=== PATIENT | male | born 1970 | race Caucasian/White ===

== ENCOUNTER → 2024-11-20 | Outpatient (CLI) | payer OTHER, SELFPAY ==
[2024-11-20 18:16] LABS: Absolute Neutrophil Count 5.6 X10^3/uL (2.0-7.7); Basophil# 0.05 X10^3/uL; Basophil% 0.6 % (0-1); Eosinophil# 0.13 X10^3/uL; Eosinophils% 1.5 % (0-5); Hematocrit 43.7 % (40-54); Hemoglobin 15.2 g/dL (13.0-16.5); Lymphocyte % 23.7 % (19-41); Mean Corp Hgb Conc 34.8 g/dL (32-36); Mean Corpuscular Hgb 31.3 pg (27.0-32.0); Mean Corpuscular Volume 89.9 fL (80-94); Mean Platelet Vol. 9.7 fl (6.2-12.0); Monocyte# 0.62 X10^3/uL; Monocyte% 7.3 % (0-10); NRBC Flagged by Analyzer 0 % (0-5); Neutrophil # 5.62 X10^3/uL (2.7-7.7); Neutrophil % 66.7 % (47-70); Platelet Count 368 K/mm3 (150-450); RBC Distribution Width CV 11.9 % (11.6-14.6); Red Blood Count 4.86 M/mm3 (4.6-6.2); White Blood Count 8.4 K/mm3 (4.4-11.0)
[2024-11-20 18:31] LABS: ALB/GLOB Ratio 1.4 RATIO (0.9-2.4); AST(SGOT) 27 U/L (<=37); Alanine Aminotransfer ALT/SGPT 21 U/L (<=46); Albumin, Serum 3.9 g/dL (3.5-5.0); Alkaline Phosphatase 75 U/L (40-129); Anion Gap 20 (5-15); BUN 12 mg/dL (4-19); BUN/Creat Ratio 12.4 RATIO (10-20); Calcium,Total 8.8 mg/dL (7.6-11.0); Carbon Dioxide 13.2 mmol/L (21.0-32.0); Chloride 104 mmol/L (98-108); Cholesterol 163 mg/dL (<=200); Creatinine, Serum 0.94 mg/dL (0.70-1.20); EST Glomerular Filtration Rate 97 (>60); Globulin 2.7 g/dL (2.2-4.2); Glucose 94 mg/dL (70-99); High Density Lipoprotein 61 mg/dL; Low Density Lipoprotein Calc. 89 mg/dL; PSA,Total - Annual Screen 0.49 ng/mL (0.02-4.00); Potassium 3.8 mmol/L (3.3-5.1); Protein, Total 6.6 g/dL (5.9-8.4); Sodium Level 137 mmol/L (133-145); Total Bilirubin 0.46 mg/dL (0.00-1.30); Triglycerides 68 mg/dL; Very Low Density Lipoprotein 14 mg/dL (5-40); cholesterol:hdl ratio screen 2.69
== END | disposition home or self-care (01) ==
PROVIDERS: PCP Nurse Practitioner Family; Referring Provider Nurse Practitioner Family; Visit Provider Nurse Practitioner Family
DX: Z00.01 Encounter for general adult medical examination with abnormal findings (principal); Z12.5 Encounter for screening for malignant neoplasm of prostate
CPT/HCPCS: 36415; 80053; 80061; 84153; 85025; G0103

== ENCOUNTER 2024-12-09 06:36 | Day surgery (SDC) | payer OTHER, SELFPAY ==
--- OUTSIDE RECORDS SUMMARY | 2024-12-09 06:39 | XMS RPT_ITS | CCD ---
Author Organization [facility] Care Team Providers Care Glazier Artist Name Role Phone TANESHA SNOWDEN Attending Unavailable Benjamin BILL HIKER-C, Ashley Primary Care Provider Benjamin BILL HIKER-C, Ashley Attending Provider [phone] Benjamin BILL HIKER-C, Ashley Referring Provider Jamey POPE, Dr. Silvestre Zavala Attending Provider Benjamin, Ashley Referring Unavailable Benjamin, Ashley Primary Care Unavailable Silvestre Concepcion Attending Unavailable Benjamin, Ashley Attending Unavailable Benjamin, Ashley Primary Care Unavailable Benjamin, Ashley Referring Unavailable Benjamin, Ashley Primary Care Unavailable Silvestre Concepcion Referring Unavailable Silvestre Concepcion Attending Unavailable Silvestre Arce Attending Unavailable Problems Problem Classification Problem Date Documented Da te Episodic/Chronic Gastrointestinal hemorrhage (1 source) Hematochezia; Translations: [Melena] 12-01-2024 Episodic Hemorrhoids (1 source) Hemorrhoids; Translations: [Unspecified hemorrhoids] 12-01-2024 Episodic Results Test Name Value Interpretation Reference Range Facility Surgery Visit Reporton 12-01 Surgery Visit Report [facility] [address] [place] [address] OFFICE VISIT Date of Service: 12/01/24 MR#: [id number] Acct: [id number] Name: GERRY LOW Rep #: [id number] : 1970 Provider: Dr. Silvestre dempsey MD Age/Sex: 54/M Location: [facility] Status: Signed Intake Vital Signs 12/01/24 09:39 Height 5 ft 7 in Weight: 204 lb 4 oz BMI 32.0 BP 144/104 H Blood Pressure Location Rt brachial Position Sitting Respiration 18 Pulse 75 Pulse Source Monitor Temp 97.2 F L Temp Source Temporal Pulse Oximetry (%) 98 Oxygen Delivery Method room air Intake Visit Reasons: COLONOSCOPY, BLOODY STOOL Chief Complaint: colonoscopy, bloody stool Is patient in pain?: No Allergies No Known Allergies Allergy (Unverified 12/01/24 09:40) Medications ???Medication ???Instructions ???Recorded ???Confirmed ???Type NK 12/01/24 12/01/24 History PFSH Medical History Hemorrhoids Blood in stool Surgical History Hx of total knee arthroplasty Social History Smoking Status: Never smoker alcohol intake: never substance use type: does not use HPI HPI HPI: The patient is a 54-year-old male who is being seen today for complaints of blood per rectum. He has never had a colonoscopy. He states that for the past year he has noticed intermittent bright red blood with bowel movements. He states that this blood is usually just noticed on the toilet tissue with wiping however it can sometimes also be within the toilet bowl water as well. He does admit to being on his feet and lifting on a daily basis. He denies issues with constipation. No family history of colon polyps or colon cancers. He presents today to discuss colonoscopy ROS General General: No weight change, appetite, fatigue, colon cancer, breast cancer or weakness HEENT HEENT: No difficulty swallowing, eye injury, eye surgery, swollen glands or hoarseness Endo Endocrine: No thyroid disease, diabetes mellitus, thyroid cancer, Hair loss, heat intolerance or cold intolerance Skin Skin: No rash or changing moles Musc Musculoskeletal: No back problems, arthritis, rheumatoid arthritis, gout or joint pain Cardio Cardiovascular: No murmur, pacemaker, heart disease, atrial fibrillation, high blood pressure, heart attack, heart stent, palpitations, shortness of breath with exertion or chest pain Psych Psychiatric: No depression, anxiety or hearing voices Resp Respiratory: No shortness of breath, No sleep apnea, No cough, No COPD, No asthma, No emphysema and No wheezing Gastro Gastrointestinal: No abdominal pain, No nausea or vomiting, No diarrhea, No constipation, Yes blood in stool, No acid reflux, Yes hemorrhoids, No ulcers, No gallbladder problem and No black,tarry stools Stevie Hematologic: No blood thinners, No blood disorders, No bleeding, No anemia and No blood clots Neuro Neurologic: No numbness, No tingling and No weakness Exam Const General: cooperative, comfortable and no acute distress HENNM Head: normal to inspection, normocephalic and atraumatic Eyes General: appearance normal, both eyes and all related structures Neck Neck: normal visual inspection Resp Effort Inspection: normal respiratory effort GI Inspection: normal to inspection Assessment and Plan Assessment and Plan (1) Hemorrhoids: Status: Acute (2) Blood in stool: Status: Acute Plan: The patient is a 54-year-old male with occasional blood per rectum. I suspect this could be hemorrhoid related however he has never had a colonoscopy and would recommend colonoscopy to rule out polyps and/or malignancy as possibilities as well. He is agreeable to this plan. We discussed the details of the planned colonoscopy including risk benefits and alternatives. He wishes to proceed. In the meantime I did recommend that he also try to increase the fiber in his diet via Benefiber or Metamucil. He is agreeable this plan. we will schedule his colonoscopy in a timely manner. Coding Level of Care Code Off vis,new,level 4 Diagnoses Hemorrhoids K64.9 Blood in stool K92.1 12/01/24 1007 Date _ Silvestre Concepcion MD Cosigner Signature: Date _ (if applicable) CC: BILL HIKER-C Ashley Alexander Normal [facility] Absolute lymphocyte countOrd ered By: Ashley Alexander on 11-20-2024 Lymphocytes Auto (Unsp spec) [#/Vol] 2.00 10*3/uL 0.83-4.51 [facility] Absolute neutrophil countOrd ered By: Ashley Alexander on 11-20-2024 Neutrophils (Bld) [#/Vol] 5.6 10*3/uL 2.0-7.7 [facility] Anion gap in Serum or Plasma Ordered By: Ashleycameron Alexander on 11-20-2024 Anion gap [Moles/Vol] 20 mmol/L High 5-15 [facility] Automated lymphocyte count a s percentage of total leukocytesOrdered By: Ashley Alexander on 11-20-2024 Lymphocytes/100 WBC Auto (Unsp spec) 23.7 % - [facility] BUN/creatinine ratioOrdered By: Ashley Benjamin on 11-20-2024 Urea nitrogen/Creatinine [Mass ratio] 12.4 mg/mg 10- [facility] Basophil percentageOrdered B y: Ashley Alexander on 11-20-2024 Basophils/100 WBC (Bld) 0.6 % 0-1 [facility] Bilirubin, totalOrdered By: Ashley Alexander on 11-20-2024 Bilirubin [Mass/Vol] 0.46 mg/dL 0.00-1.30 [facility] CBC W/Diff, Automatedon 10-31 Absolute Lymph 2.00 X10 3/uL Normal 0.83-4.51 [facility] Comment on above: Performed By: #### L 501.9910, L100.0100, L500.4100, L500.4050 #### [facility] [address] [place], [address] Absolute Neut 5.6 X10 3/uL Normal 2.0-7.7 [facility] Comment on above: Performed By: #### L 501.9910, L100.0100, L500.4100, L500.4050 #### [facility] [address] [place], [address] Basophils/100 WBC (Bld) 0.6 % Normal 0-1 [facility] Comment on above: Performed By: #### L 501.9910, L100.0100, L500.4100, L500.4050 #### [facility] [address] [place], [address] Eosinophils/100 WBC (Bld) 1.5 % Normal 0-5 [facility] Comment on above: Performed By: #### L 501.9910, L100.0100, L500.4100, L500.4050 #### [facility] [address] [place], [address] Erythrocyte distribution width (RBC) [Ratio] 11.9 % Normal 11.6-14.6 [facility] Comment on above: Performed By: #### L 501.9910, L100.0100, L500.4100, L500.4050 #### [facility] [address] [place], [address] Hematocrit (Bld) [Volume fraction] 43.7 % Normal 40-54 [facility] Comment on above: Performed By: #### L 501.9910, L100.0100, L500.4100, L500.4050 #### [facility] [address] [place], [address] Hemoglobin (Bld) [Mass/Vol] 15.2 g/dL Normal 13.0-16.5 [facility] Comment on above: Performed By: #### L 501.9910, L100.0100, L500.4100, L500.4050 #### [facility] [address] [place], [address] IG% 0.200 Normal 0.0-0.9 [facility] Comment on above: Result Comment: IG% - Immature Granulocytes (promyelocytes, myelocytes and metamyelocytes) > 1% indicates that a LEFT SHIFT is Present. Performed By: #### L 501.9910, L100.0100, L500.4100, L500.4050 #### [facility] [address] [place], [address] Lymphocytes/100 WBC (Bld) 23.7 % Normal 19-41 [facility] Comment on above: Performed By: #### L 501.9910, L100.0100, L500.4100, L500.4050 #### [facility] [address] [place], [address] MCH (RBC) [Entitic mass] 31.3 pg Normal 27.0-32.0 [facility] Comment on above: Performed By: #### L 501.9910, L100.0100, L500.4100, L500.4050 #### [facility] [address] [place], [address] MCHC (RBC) [Mass/Vol] 34.8 g/dL Normal 32-36 [facility] Comment on above: Performed By: #### L 501.9910, L100.0100, L500.4100, L500.4050 #### [facility] [address] [place], [address] MCV (RBC) [Entitic vol] 89.9 fL Normal 80-94 [facility] Comment on above: Performed By: #### L 501.9910, L100.0100, L500.4100, L500.4050 #### [facility] [address] [place], [address] Monocytes/100 WBC (Bld) 7.3 % Normal 0-10 [facility] Comment on above: Performed By: #### L 501.9910, L100.0100, L500.4100, L500.4050 #### [facility] [address] [place], [address] Neutrophils/100 WBC (Bld) 66.7 % Normal 47-70 [facility] Comment on above: Performed By: #### L 501.9910, L100.0100, L500.4100, L500.4050 #### [facility] [address] [place], [address] Nucleated RBC (Bld) [#/Vol] 0 10*3/uL Normal 0-5 [facility] Comment on above: Performed By: #### L 501.9910, L100.0100, L500.4100, L500.4050 #### [facility] [address] [place], [address] Platelet mean volume (Bld) [Entitic vol] 9.7 fL Normal 6.2-12.0 [facility] Comment on above: Performed By: #### L 501.9910, L100.0100, L500.4100, L500.4050 #### [facility] [address] [place], [address] Platelets (Bld) [#/Vol] 368 10*3/uL Normal 150-450 [facility] Comment on above: Performed By: #### L 501.9910, L100.0100, L500.4100, L500.4050 #### [facility] [address] [place], [address] RBC (Bld) [#/Vol] 4.86 10*6/uL Normal 4.6-6.2 [facility] Comment on above: Performed By: #### L 501.9910, L100.0100, L500.4100, L500.4050 #### [facility] [address] [place], [address] RDW SD 39.0 fl Normal 35.1-43.9 [facility] Comment on above: Performed By: #### L 501.9910, L100.0100, L500.4100, L500.4050 #### [facility] [address] [place], [address] WBC (Bld) [#/Vol] 8.4 10*3/uL Normal 4.4-11.0 [facility] Comment on above: Performed By: #### L 501.9910, L100.0100, L500.4100, L500.4050 #### [facility] [address] [place], [address] Calculated very low density lipoprotein (VLDL) cholesterol measurementOrdered By: Ashley Alexander on 11-20-2024 Calculated very low density lipoprotein (VLDL) cholesterol measurement 14 mg/dL 5-40 [facility] Carbon dioxide, total [Moles /volume] in Central venous bloodOrdered By: Ashley Alexander on 11-20-2024 CO2 [Moles/Vol] 13.2 mmol/L Low 21.0-32.0 [facility] Chloride assayOrdered By: Ra bibi Alexander on 11-20-2024 Chloride [Moles/Vol] 104 mmol/L 98-108 [facility] Comprehensive Metabolic Prof ilon 11-20-2024 Albumin [Mass/Vol] 3.9 g/dL Normal 3.5-5.0 [facility] Comment on above: Performed By: #### L 501.9910, L100.0100, L500.4100, L500.4050 #### [facility] [address] [place], [address] Albumin/Globulin [Mass ratio] 1.4 {ratio} Normal 0.9-2.4 [facility] Comment on above: Performed By: #### L 501.9910, L100.0100, L500.4100, L500.4050 #### [facility] [address] [place], [address] ALK PHOS 75 U/L Normal 40-129 [facility] Comment on above: Performed By: #### L 501.9910, L100.0100, L500.4100, L500.4050 #### [facility] [address] [place], [address] ALT [Catalytic activity/Vol] 21 U/L Normal <=46 [facility] Comment on above: Performed By: #### L 501.9910, L100.0100, L500.4100, L500.4050 #### [facility] [address] [place], [address] AST [Catalytic activity/Vol] 27 U/L Normal <=37 [facility] Comment on above: Performed By: #### L 501.9910, L100.0100, L500.4100, L500.4050 #### [facility] [address] [place], [address] Bilirubin [Mass/Vol] 0.46 mg/dL Normal 0.00-1.30 [facility] Comment on above: Performed By: #### L 501.9910, L100.0100, L500.4100, L500.4050 #### [facility] [address] [place], [address] BUN/CRE 12.4 RATIO Normal 10-20 [facility] Comment on above: Performed By: #### L 501.9910, L100.0100, L500.4100, L500.4050 #### [facility] [address] [place], [address] Calcium [Mass/Vol] 8.8 mg/dL Normal 7.6-11.0 [facility] Comment on above: Performed By: #### L 501.9910, L100.0100, L500.4100, L500.4050 #### [facility] [address] [place], [address] Chloride [Moles/Vol] 104 mmol/L Normal 98-108 [facility] Comment on above: Performed By: #### L 501.9910, L100.0100, L500.4100, L500.4050 #### [facility] [address] [place], [address] CO2 [Moles/Vol] 13.2 mmol/L Low 21.0-32.0 [facility] Comment on above: Performed By: #### L 501.9910, L100.0100, L500.4100, L500.4050 #### [facility] [address] [place], [address] Creatinine [Mass/Vol] 0.94 mg/dL Normal 0.70-1.20 [facility] Comment on above: Performed By: #### L 501.9910, L100.0100, L500.4100, L500.4050 #### [facility] [address] [place], [address] GAP 20 High 5-15 [facility] Comment on above: Performed By: #### L 501.9910, L100.0100, L500.4100, L500.4050 #### [facility] [address] [place], [address] GFR/1.73 sq M.predicted among non-blacks MDRD (S/P/Bld) [Vol rate/Area] 97 mL/min/{1.73_m2} Normal >60 [facility] Comment on above: Result Comment: mL/m in/1.73m2 CKD-EPI Creatinine Equation (2020) Performed By: #### L 501.9910, L100.0100, L500.4100, L500.4050 #### [facility] [address] [place], [address] Globulin (S) [Mass/Vol] 2.7 g/dL Normal 2.2-4.2 [facility] Comment on above: Performed By: #### L 501.9910, L100.0100, L500.4100, L500.4050 #### [facility] [address] [place], [address] Glucose [Mass/Vol] 94 mg/dL Normal 70-99 [facility] Comment on above: Performed By: #### L 501.9910, L100.0100, L500.4100, L500.4050 #### [facility] [address] [place], [address] Potassium [Moles/Vol] 3.8 mmol/L Normal 3.3-5.1 [facility] Comment on above: Performed By: #### L 501.9910, L100.0100, L500.4100, L500.4050 #### [facility] [address] [place], [address] Sodium [Moles/Vol] 137 mmol/L Normal 133-145 [facility] Comment on above: Performed By: #### L 501.9910, L100.0100, L500.4100, L500.4050 #### [facility] [address] [place], [address] T PROT 6.6 g/dL Normal 5.9-8.4 [facility] Comment on above: Performed By: #### L 501.9910, L100.0100, L500.4100, L500.4050 #### [facility] [address] [place], [address] Urea nitrogen [Mass/Vol] 12 mg/dL Normal 4-19 [facility] Comment on above: Performed By: #### L 501.9910, L100.0100, L500.4100, L500.4050 #### [facility] [address] [place], [address] Eosinophil percentageOrdered By: Ashley Alexander on 11-20-2024 Eosinophils/100 WBC (Bld) 1.5 % 0-5 [facility] Erythrocyte distribution wid th ratioOrdered By: Ashley Alexander on 11-20-2024 Erythrocyte distribution width (RBC) [Ratio] 11.9 % 11.6-14.6 [facility] Erythrocyte distribution wid th standard deviationOrdered By: Ashley Alexander on 11-20-2024 Erythrocyte distribution width (RBC) [Ratio] 39.0 fl 35.1-43.9 [facility] Glomerular filtration rate ( GFR) estimation/1.73 sq m using serum, plasma, or whole bOrdered By: Ashley Alexander on 11-20-2024 GFR/1.73 sq M.predicted among non-blacks MDRD (S/P/Bld) [Vol rate/Area] 97 mL/min/{1.73_m2} >60 [facility] Comment on above: mL/min/1.73m2 CKD-EP I Creatinine Equation (2020) Hematocrit Auto (Bld) [Volum e fraction]Ordered By: Ashley Alexander on 11-20-2024 Hematocrit (Bld) [Volume fraction] 43.7 % 40-54 [facility] Hemoglobin measurementOrdere d By: Ashley Alexander on 11-20-2024 Hemoglobin (Bld) [Mass/Vol] 15.2 g/dL 13.0-16.5 [facility] Immature granulocytes/100 WB C Auto (Bld)Ordered By: Ashley Alexander on 11-20-2024 Immature granulocytes/100 WBC (Bld) 0.200 % 0.0-0.9 [facility] Comment on above: IG% - Immature Granu locytes (promyelocytes, myelocytes and metamyelocytes) > 1% indicates that a LEFT SHIFT is Present. LDL calc ser/plasOrdered By: Ashley Alexander on 11-20-2024 Cholesterol in LDL [Mass/Vol] 89 mg/dL [facility] Comment on above: Ouayvhpmyl=122-546 m g/dL & Higher Owdu=782 mg/dL or greater Laboratory - Chemistry and C hemistry - challengeOrdered By: Ashley Alexander on 11-20-2024 AST [Catalytic activity/Vol] 27 U/L <38 [facility] Lipid Profileon 11-20-2024 CHOL:HDL 2.69 Normal [facility] Comment on above: Performed By: #### L 501.9910, L100.0100, L500.4100, L500.4050 #### [facility] [address] [place], [address] Cholesterol [Mass/Vol] 163 mg/dL Normal <=200 [facility] Comment on above: Result Comment: Chol esterol level, Desirable <200 mg/dL Borderline high cholesterol 200-239 mg/dL High cholesterol >=240 mg/dL Recommendations of the NCEP Adult Treatment Panel for the following risk-cutoff thresholds for the [place] population. Performed By: #### L 501.9910, L100.0100, L500.4100, L500.4050 #### [facility] [address] [place], [address] Cholesterol in HDL [Mass/Vol] 61 mg/dL Normal [facility] Comment on above: Result Comment: Hailey onal Cholesterol Education Program (NCEP) guidelines: <40 mg/dL: Low HDL-cholesterol (major risk factor for CHD) >= 60 mg/dL: High HDL-cholesterol (negative risk factor for CHD) HDL-cholesterol is affected by a number of factors, e.g. smoking, exercise, hormones, sex and age. Performed By: #### L 501.9910, L100.0100, L500.4100, L500.4050 #### [facility] [address] [place], [address] Cholesterol in LDL [Mass/Vol] 89 mg/dL Normal [facility] Comment on above: Result Comment: Bord swaydr=941-454 mg/dL Higher Qfxn=177 mg/dL or greater Performed By: #### L 501.9910, L100.0100, L500.4100, L500.4050 #### [facility] [address] [place], [address] Cholesterol in VLDL [Mass/Vol] 14 mg/dL Normal 5-40 [facility] Comment on above: Performed By: #### L 501.9910, L100.0100, L500.4100, L500.4050 #### [facility] [address] [place], [address] Triglyceride [Mass/Vol] 68 mg/dL Normal [facility] Comment on above: Result Comment: The drugs N-Acetylcysteine and Metamizole may falsely depress this assay. Normal range: <150 mg/dL Borderline High: 150-199 mg/dL High: 200-499 mg/dL Very High: >500 mg/dL Performed By: #### L 501.9910, L100.0100, L500.4100, L500.4050 #### [facility] [address] [place], [address] MCV (mean corpuscular volume ) determinationOrdered By: [place] Benjamin on 11-20-2024 MCV (RBC) [Entitic vol] 89.9 fL 80-94 [facility] Mean corpuscular hemoglobin (MCH) determinationOrdered By: [facility] on 11-20-2024 MCH (RBC) [Entitic mass] 31.3 pg 27.0-32.0 [facility] Mean corpuscular hemoglobin concentration (MCHC) determinationOrdered By: [facility] on 11-20-2024 MCHC (RBC) [Mass/Vol] 34.8 g/dL 32-36 [facility] Mean platelet volume determi nationOrdered By: [place] Benjamin on 11-20-2024 Platelet mean volume (Bld) [Entitic vol] 9.7 fL 6.2-12.0 [facility] Monocyte [facility]Ordered B y: [facility] Monocytes/100 WBC (Bld) 7.3 % 0-10 [facility] Neutrophil percentageOrdered By: [facility] on 11-20-2024 Neutrophils/100 WBC (Bld) 66.7 % 47-70 [facility] Nucleated red blood cell per centageOrdered By: [facility] on 11-20-2024 Nucleated RBC/100 WBC (Bld) [Ratio] 0 % 0-5 [facility] PSA,Total - Annual Screenon 11-20-2024 PSA,TOT SCREEN 0.49 ng/mL Normal 0.02-4.00 [facility] Comment on above: Result Comment: This test was performed using the [facility] tPSA method. Measured values of a patient??sample can vary depending on the testing procedure used. PSA values determined on patient samples by different testing procedures cannot be used interchangeably. If there is a change in PSA assays while monitoring therapy, sequential testing should be performed to confirm baseline values. Performed By: #### L 501.9910, L100.0100, L500.4100, L500.4050 #### [facility] [place], [address] Platelet countOrdered By: Ra bibi Alexander on 11-20-2024 Platelets (Bld) [#/Vol] 368 10*3/uL 150-450 [facility] Potassium measurement (mass/ volume)Ordered By: Ashley Alexander on 11-20-2024 Potassium (Unsp spec) [Mass/Vol] 3.8 mmol/L 3.3-5.1 [facility] RBC Auto (Bld) [#/Vol]Ordere d By: Ashley Alexander on 11-20-2024 RBC (Bld) [#/Vol] 4.86 10*6/uL 4.6-6.2 [facility] Screening total cholesterol/ high density lipoprotein (HDL) cholesterol ratioOrdered By: Ashley Alexander on 11-20-2024 Cholesterol.total/Choles terol in HDL [Mass ratio] 2.69 {ratio} [facility] Serum creatinine measurement (mass/volume)Ordered By: Ashley Alexander on 11-20-2024 Creatinine [Mass/Vol] 0.94 mg/dL 0.70-1.20 [facility] Serum globulin measurementOr dered By: Ashley Alexander on 11-20-2024 Globulin (S) [Mass/Vol] 2.7 g/dL 2.2-4.2 [facility] Serum glucose measurement (m ass/volume)Ordered By: Ashley Alexander on 11-20-2024 Glucose [Mass/Vol] 94 mg/dL 70-99 [facility] Serum or plasma alanine kent otransferase (ALT) measurementOrdered By: Ashley Alexander 11-20-2024 ALT [Catalytic activity/Vol] 21 U/L <47 [facility] Serum or plasma albumin domenico urement (mass/volume)Ordered By: Ashley Alexander on 11-20-2024 Albumin [Mass/Vol] 3.9 g/dL 3.5-5.0 [facility] Serum or plasma albumin/glob ulin mass ratioOrdered By: Ashley Alexander on 11-20-2024 Albumin/Globulin [Mass ratio] 1.4 {ratio} 0.9-2.4 [facility] Serum or plasma alkaline edward sphatase measurementOrdered By: Ashley Alexander on 11-20-2024 ALP [Catalytic activity/Vol] 75 U/L 40-129 [facility] Serum or plasma calcium domenico urement (mass/volume)Ordered By: Ashley Alexander on 11-20-2024 Calcium [Mass/Vol] 8.8 mg/dL 7.6-11.0 [facility] Serum or plasma cholesterol in HDL measurement (mass/volume)Ordered By: Ashley Alexander on 11-20-2024 Cholesterol in HDL [Mass/Vol] 61 mg/dL >40 [facility] Comment on above: National Cholesterol Education Program (NCEP) guidelines:<40 mg/dL: Low HDL-cholesterol (major risk factor for CHD)>= 60 mg/dL: High HDL-cholesterol (negative risk factor for CHD)HDL-cholesterol is affected by a number of factors, e.g. smoking, exercise, hormones, sex and age. Serum or plasma cholesterol measurement (mass/volume)Ordered By: Ashley Alexander on 11-20-2024 Cholesterol [Mass/Vol] 163 mg/dL <201 [facility] Comment on above: Cholesterol level, D esirable <200 mg/dLBorderline high cholesterol 200-239 mg/dLHigh cholesterol >=240 mg/dLRecommendations of the NCEP Adult Treatment Panel for the following risk-cutoff thresholds for the [place] population. Serum or plasma urea nitroge n measurement (mass/volume)Ordered By: Ashley Alexander on 11-20-2024 Urea nitrogen [Mass/Vol] 12 mg/dL 4-19 [facility] Sodium levelOrdered By: Pratibha Alexander on 11-20-2024 Sodium [Moles/Vol] 137 mmol/L 133-145 [facility] Total proteinOrdered By: Jh Alexander on 11-20-2024 Protein [Mass/Vol] 6.6 g/dL 5.9-8.4 [facility] Triglycerides measurementOrd ered By: Ashley Alexander on 11-20-2024 Triglyceride [Mass/Vol] 68 mg/dL <199 [facility] Comment on above: The drugs N-Acetylcy steine and Metamizole may falsely depress this assay. Normal range: <150 mg/dLBorderline High: 150-199 mg/dLHigh: 200-499 mg/dLVery High: >500 mg/dL White blood cell (WBC) count Ordered By: Ashley Alexander on 11-20-2024 WBC (Bld) [#/Vol] 8.4 10*3/uL 4.4-11.0 [facility] .Auto Diffon 07-21-2024 Basophil, Absolute 0.1 10 3/mcL Normal 0.0-0.2 [facility] Comment on above: Performed By: #### B MP, CBC, ANEU, ADIFF, GFR #### [address] [address] Basophils/100 WBC (Bld) 1.3 % Normal 0.0-2.5 [facility] Comment on above: Performed By: #### B MP, CBC, ANEU, ADIFF, GFR #### [address] [address] Eosinophil, Absolute 0.2 10 3/mcL Normal 0.0-0.7 [facility] Comment on above: Performed By: #### B MP, CBC, ANEU, ADIFF, GFR #### [address] [address] Eosinophils/100 WBC (Bld) 2.1 % Normal 0.0-7.0 [facility] Comment on above: Performed By: #### B MP, CBC, ANEU, ADIFF, GFR #### [address] [address] Lymphocyte, Absolute 2.1 10 3/mcL Normal 0.9-4.3 [facility] Comment on above: Performed By: #### B MP, CBC, ANEU, ADIFF, GFR #### [address] [address] Lymphocytes/100 WBC (Bld) 22.7 % Normal 20.0-40.0 [facility] Comment on above: Performed By: #### B MP, CBC, ANEU, ADIFF, GFR #### [address] [address] Monocyte, Absolute 0.9 10 3/mcL Normal 0.1-1.4 [facility] Comment on above: Performed By: #### B MP, CBC, ANEU, ADIFF, GFR #### [address] [address] Monocytes/100 WBC (Bld) 9.4 % Normal 2.0-13.0 [facility] Comment on above: Performed By: #### B MP, CBC, ANEU, ADIFF, GFR #### [address] [address] Neutrophils/100 WBC (Bld) 64.5 % Normal 50.0-75.0 [facility] Comment on above: Performed By: #### B MP, CBC, ANEU, ADIFF, GFR #### [address] [address] .GFRon 07-21-2024 GFR 99 ml/min/1.73sqm Normal [facility] Comment on above: Result Comment: GFR Population mean for , Non- Americans Ages 20-29 = 116 mL/min/1.73 sq.m. Ages 30-39 = 107 mL/min/1.73 sq.m. Ages 40-49 = 99 mL/min/1.73 sq.m. Ages 50-59 = 93 mL/min/1.73 sq.m. Ages 60-69 = 85 mL/min/1.73 sq.m. Ages 70+ = 75 mL/min/1.73 sq.m. Chronic Kidney Disease: Less than 60 mL/min/1.73 square meters End Stage Renal Disease: Less than 15 mL/min/1.73 square meters Performed By: #### B MP, CBC, ANEU, ADIFF, GFR #### [address] [address] GFR Non- 82 ml/min/1.73sqm Normal [facility] Comment on above: Result Comment: GFR Population mean for , Non- Americans Ages 20-29 = 116 mL/min/1.73 sq.m. Ages 30-39 = 107 mL/min/1.73 sq.m. Ages 40-49 = 99 mL/min/1.73 sq.m. Ages 50-59 = 93 mL/min/1.73 sq.m. Ages 60-69 = 85 mL/min/1.73 sq.m. Ages 70+ = 75 mL/min/1.73 sq.m. Chronic Kidney Disease: Less than 60 mL/min/1.73 square meters End Stage Renal Disease: Less than 15 mL/min/1.73 square meters Performed By: #### B MP, CBC, ANEU, ADIFF, GFR #### [address] [address] .NEUABSon 07-21-2024 Neutrophil, Absolute 6.0 10 3/mcL Normal 2.3-8.1 [facility] Comment on above: Performed By: #### B MP, CBC, ANEU, ADIFF, GFR #### [address] [address] BMPon 07-21-2024 BUN/Creatinine Ratio 12 ratio Normal 7-27 [facility] Comment on above: Performed By: #### B MP, CBC, ANEU, ADIFF, GFR #### [address] [address] Calcium [Mass/Vol] 9.4 mg/dL Normal 8.4-10.2 [facility] Comment on above: Performed By: #### B MP, CBC, ANEU, ADIFF, GFR #### [address] [address] Chloride [Moles/Vol] 103 mmol/L Normal 98-107 [facility] Comment on above: Performed By: #### B MP, CBC, ANEU, ADIFF, GFR #### [address] [address] CO2 [Moles/Vol] 29 mmol/L Normal 22-29 [facility] Comment on above: Performed By: #### B MP, CBC, ANEU, ADIFF, GFR #### [address] [address] Creatinine [Mass/Vol] 0.96 mg/dL Normal 0.70-1.30 [facility] Comment on above: Result Comment: Test ing performed on Siemens Dimension EXL analyzer using a modified kinetic Yulia technique. Performed By: #### B MP, CBC, ANEU, ADIFF, GFR #### [address] [address] Electrolyte Balance 6.0 mEq/L Normal 4.0-15.0 [facility] Comment on above: Performed By: #### B MP, CBC, ANEU, ADIFF, GFR #### [place] [id number] Glucose [Mass/Vol] 89 mg/dL Normal 70-105 [facility] Comment on above: Performed By: #### B MP, CBC, ANEU, ADIFF, GFR #### [address] [address] Potassium [Moles/Vol] 4.7 mmol/L Normal 3.5-5.1 [facility] Comment on above: Performed By: #### B MP, CBC, ANEU, ADIFF, GFR #### [address] [address] Sodium [Moles/Vol] 138 mmol/L Normal 136-145 [facility] Comment on above: Performed By: #### B MP, CBC, ANEU, ADIFF, GFR #### [address] [address] Urea nitrogen [Mass/Vol] 12 mg/dL Normal 7-18 [facility] Comment on above: Performed By: #### B MP, CBC, ANEU, ADIFF, GFR #### [address] [address] CBCon 07-21-2024 Erythrocyte distribution width (RBC) [Ratio] 13.3 % Normal 11.5-15.5 [facility] Comment on above: Performed By: #### B MP, CBC, ANEU, ADIFF, GFR #### [address] [address] Hematocrit (Bld) [Volume fraction] 48.8 % Normal 40.0-52.0 [facility] Comment on above: Performed By: #### B MP, CBC, ANEU, ADIFF, GFR #### [address] [address] Hgb 16.8 G/dL Normal 13.0-17.5 [facility] Comment on above: Performed By: #### B MP, CBC, ANEU, ADIFF, GFR #### [address] [address] MCH (RBC) [Entitic mass] 31.5 pg Normal 27.0-33.0 [facility] Comment on above: Performed By: #### B MP, CBC, ANEU, ADIFF, GFR #### [place] [address] MCHC 34.3 G/dL Normal 32.0-36.0 [facility] Comment on above: Performed By: #### B MP, CBC, ANEU, ADIFF, GFR #### [address] [address] MCV (RBC) [Entitic vol] 91.6 fL Normal 81.0-100.0 [facility] Comment on above: Performed By: #### B MP, CBC, ANEU, ADIFF, GFR #### [address] [address] Platelet 314 10 3/mcL Normal 150-450 [facility] Comment on above: Performed By: #### B MP, CBC, ANEU, ADIFF, GFR #### [address] [address] Platelet mean volume (Bld) [Entitic vol] 7.9 fL Normal 6.4-10.5 [facility] Comment on above: Performed By: #### B MP, CBC, ANEU, ADIFF, GFR #### [place] [address] RBC 5.33 10 6/mcL Normal 4.50-6.00 [facility] Comment on above: Performed By: #### B MP, CBC, ANEU, ADIFF, GFR #### [place] [address] [place], [place] [address] WBC 9.2 10 3/mcL Normal 4.5-10.8 [facility] Comment on above: Performed By: #### B MP, CBC, ANEU, ADIFF, GFR #### [facility] [address] [place], [place] [address] LABORATORYOrdered By: SYSTEM SYSTEM on 07-21-2024 Basophils (Bld) [#/Vol] 0.1 103/mcL Normal 0.0 - 0.2 10^3/mcL AO Workflow SS Basophils/100 WBC (Bld) 1.3 % Normal 0.0 - 2.5 % AO Workflow SS Calcium [Mass/Vol] 9.4 mg/dL Normal 8.4 - 10. 2 mg/dL AO ADM SS Chloride [Moles/Vol] 103 mmol/L Normal 98 - 10 7 mmol/L AO ADM SS CO2 [Moles/Vol] 29 mmol/L Normal 22 - 29 mmol/L AO ADM SS Creatinine [Mass/Vol] 0.96 mg/dL Normal 0.70 - 1.30 mg/dL AO ADM SS Comment on above: Interpretive Data: T esting performed on Siemens Dimension EXL analyzer using a modified kinetic Yulia technique. Electrolyte Balance 6.0 mEq/L Normal 4.0 - 15 .0 mEq/L AO ADM SS Eosinophil, Absolute 0.2 103/mcL Normal 0.0 - 0 .7 10^3/mcL AO Workflow SS Eosinophils/100 WBC (Bld) 2.1 % Normal 0.0 - 7.0 % AO Workflow SS Erythrocyte distribution width (RBC) [Ratio] 13.3 % Normal 11.5 - 15.5 % AO Workflow SS GFR/1.73 sq M.predicted among blacks MDRD (S/P/Bld) [Vol rate/Area] 99 ml/min/1.73sqm Invalid Interpretation Code AO Chemistry S Comment on above: Interpretive Data: GFR Population mean for , Non- Americans Ages 20-29 = 116 mL/min/1.73 sq.m. Ages 30-39 = 107 mL/min/1.73 sq.m. Ages 40-49 = 99 mL/min/1.73 sq.m. Ages 50-59 = 93 mL/min/1.73 sq.m. Ages 60-69 = 85 mL/min/1.73 sq.m. Ages 70+ = 75 mL/min/1.73 sq.m. Chronic Kidney Disease: Less than 60 mL/min/1.73 square meters End Stage Renal Disease: Less than 15 mL/min/1.73 square meters GFR/1.73 sq M.predicted among non-blacks MDRD (S/P/Bld) [Vol rate/Area] 82 ml/min/1.73sqm Invalid Interpretation Code AO Chemistry S Comment on above: Interpretive Data: GFR Population mean for , Non- Americans Ages 20-29 = 116 mL/min/1.73 sq.m. Ages 30-39 = 107 mL/min/1.73 sq.m. Ages 40-49 = 99 mL/min/1.73 sq.m. Ages 50-59 = 93 mL/min/1.73 sq.m. Ages 60-69 = 85 mL/min/1.73 sq.m. Ages 70+ = 75 mL/min/1.73 sq.m. Chronic Kidney Disease: Less than 60 mL/min/1.73 square meters End Stage Renal Disease: Less than 15 mL/min/1.73 square meters Glucose [Mass/Vol] 89 mg/dL Normal 70 - 105 mg/dL AO ADM SS Hematocrit (Bld) [Volume fraction] 48.8 % Normal 40.0 - 52.0 % AO Workflow SS Hemoglobin (Bld) [Mass/Vol] 16.8 G/dL Normal 13.0 - 17.5 G/dL AO Workflow SS Lymphocytes (Bld) [#/Vol] 2.1 103/mcL Normal 0.9 - 4.3 10^3/mcL AO Workflow SS Lymphocytes/100 WBC (Bld) 22.7 % Normal 20.0 - 40.0 % AO Workflow SS MCH (RBC) [Entitic mass] 31.5 pg Normal 27. 0 - 33.0 pg AO Workflow SS MCHC 34.3 G/dL Normal 32.0 - 36.0 G/dL AO Workflow SS MCV (RBC) [Entitic vol] 91.6 fL Normal 81.0 - 100.0 fL AO Workflow SS Monocytes (Bld) [#/Vol] 0.9 103/mcL Normal 0.1 - 1.4 10^3/mcL AO Workflow SS Monocytes/100 WBC (Bld) 9.4 % Normal 2.0 - 13.0 % AO Workflow SS Neutrophils (Bld) [#/Vol] 6.0 103/mcL Normal 2.3 - 8.1 10^3/mcL AO Workflow SS Neutrophils/100 WBC (Bld) 64.5 % Normal 50.0 - 75.0 % AO Workflow SS Platelet mean volume (Bld) [Entitic vol] 7.9 fL Normal 6.4 - 10.5 fL AO Workflow SS Platelets (Bld) [#/Vol] 314 103/mcL Normal 150 - 450 10^3/mcL AO Workflow SS Potassium [Moles/Vol] 4.7 mmol/L Normal 3.5 - 5.1 mmol/L AO ADM SS RBC (Bld) [#/Vol] 5.33 106/mcL Normal 4.50 - 6.0 0 10^6/mcL AO Workflow SS Sodium [Moles/Vol] 138 mmol/L Normal 136 - 145 mmol/L AO ADM SS Urea nitrogen [Mass/Vol] 12 mg/dL Normal 7 - 18 mg/d L AO ADM SS Urea nitrogen/Creatinine [Mass ratio] 12 ratio Normal 7 - 27 ratio AO ADM SS WBC (Bld) [#/Vol] 9.2 103/mcL Normal 4.5 - 10.8 10^3/mcL AO Workflow SS Office Visit Reporton 2023 Office Visit Report [facility] [address] [place] [address] OFFICE VISIT Date of Service: 03/05/24 MR#: [id number] Acct: [id number] Patient: GERRY LOW Rep #: [id number] : 1970 Provider: XAVIER Montenegro Age/Sex: 54/M Location: [facility] Status: Signed Intake Intake Visit Reasons: NON DOT/DRUG BAT SCREEN/SELF PAY Office Procedures [facility] Billing Sheet Testing Breath Alcohol in [facility]: Yes Other Non-DOT Drug Screen: Yes 04/22/24 1748 Date _ Silvestre Guzman Signature: Date _ (if applicable) CC: Normal [facility] Office Visit Reporton 2023 Office Visit Report [facility] [address] [place] [address] OFFICE VISIT Date of Service: 11/15/23 MR#: [id number] Acct: [id number] Patient: GERRY LOW Rep #: [id number] : 1970 Provider: XAVIER Davis Age/Sex: 54/M Location: [facility] Status: Signed Intake Intake Visit Reasons: NON DOT DRUG BAT/ SELF PAY Office Procedures [facility] Billing Sheet Testing Breath Alcohol in [facility]: Yes Other Non-DOT Drug Screen: Yes 04/25/24 0753 Date _ Mono Guzman Signature: Date _ (if applicable) CC: Normal [facility] Office Visit Reporton 2023 Office Visit Report [facility] [address] [place] [address] OFFICE VISIT Date of Service: 03/05/24 MR#: [id number] Acct: [id number] Patient: GERRY LOW Rep #: [id number] : 1970 Provider: XAVIER Montenegro Age/Sex: 54/M Location: [facility] Status: Signed with Addenda ADDENDUM by Sheryl Hardin on 04/22/24 at 1437 Office Procedure Documentation entered by Sheryl Hardin 04/22/24 14:37: [facility] Billing Sheet Testing Breath Alcohol in [facility]: Yes Other Non-DOT Drug Screen: Yes Date _ cc: * Signed Intake Intake Visit Reasons: NON DOT/DRUG SCREEN/SELF PAY Office Procedures [facility] Billing Sheet Testing Other Non-DOT Drug Screen: Yes 04/14/24 1110 Date _ Silvestre Guzman Signature: Date _ (if applicable) [facility] ([facility] GERRY LOW ([id number]) 1970 M Date Time Provider Department 02/20/22 10:00 AM DELMY HAIRSTON [facility] During your visit today, we recorded the following information about you: Temperature Pulse Respiration Blood pressure 97.5 degrees 78/minute 21/minute 154/104 Weight 95.3 kg Delmy Hairston APRN.PERLA 02/20/2022 11:03 AM Signed Subjective HPI HPI Gerry Tej is a 52 year old male who presents today for CC of st. This started 2 weeks ago, also had nasal congestion in beginning/now gone. Has tried otc medication for relief. Symptoms are worsened by nothing. Risk factors significant other with uri symptoms currently. Denies fever, rash, cp/sob, n/v/d, ear pain. .Patient presents with: Sore Throat: X 2 weeks No past medical history on file. No past surgical history on file. ALLERGIES Patient has no allergy information on record. MEDICATIONS LIDOCAINE VISCOUS 2 % solution Take 5-10 mL by mouth four times daily as needed. No family history on file. Social History Tobacco Use Smoking status: Never Passive exposure: Never Smokeless tobacco: Never ROS Objective Blood pressure 154/104, pulse 78, temperature 36.4 ?C (97.5 ?F), resp. rate 21, weight 95.3 kg (210 lb), SpO2 98 %. Physical Exam Constitutional: General: He is not in acute distress. Appearance: He is not toxic-appearing or diaphoretic. HENT: Head: Normocephalic and atraumatic. Right Ear: Hearing, tympanic membrane, ear canal and external ear normal. There is no impacted cerumen. Left Ear: Hearing, tympanic membrane, ear canal and external ear normal. There is impacted cerumen (small amount of left tm visible/normal.). Nose: Nose normal. Mouth/Throat: Pharynx: Uvula midline. No pharyngeal swelling, oropharyngeal exudate, posterior oropharyngeal erythema or uvula swelling. Eyes: General: Lids are normal. No scleral icterus. Right eye: No discharge. Left eye: No discharge. Conjunctiva/scler a: Conjunctivae normal. Pupils: Pupils are equal, round, and reactive to light. Neck: Trachea: Trachea normal. Cardiovascular: Rate and Rhythm: Normal rate and regular rhythm. Heart sounds: Normal heart sounds. Pulmonary: Effort: Pulmonary effort is normal. Breath sounds: Normal breath sounds. Musculoskeletal: Cervical back: Normal range of motion and neck supple. Lymphadenopathy: Cervical: No cervical adenopathy. Right cervical: No superficial cervical adenopathy. Left cervical: No superficial cervical adenopathy. Skin: Findings: No rash. Neurological: Mental Status: He is alert and oriented to person, place, and time. ASSESSMENT/PLAN: 1. Sore throat - ICD9: 462, ICD10: J02.9 - suspect viral - Alere Strep Test neg, no culture pending - Discussed supportive care treatment with fluids, rest and analgesia. - The patient should follow up in 3-5 days if symptoms persist or worsen If symptoms persist another week, try atb for protracted uri. - ALERE STREP A TEST (AG) - LIDOCAINE HCL 2 % MUCOSAL SOLUTION - AMOXICILLIN 875 MG TABLET Agrees to plan Delmy Hairston APRN.[employer] Referring Provider: SELF [200] Allergies As of Date: 02/20/2022 (Not on File) Date Reviewed: 02/20/2022 Reviewed by: Delmy Hairston APRN.PERLA - Fully Assessed Reason for Visit: Sore Throat [200] Cmt: X 2 weeks Primary Visit Diagnosis:Sore throat [J02.9] Order(s):ALERE STREP A TEST (AG) [9723059] Order #: [id number] STREP A MOLECULAR (POC) [1058072] Order #: [id number] #:[id number] LIDOCAINE VISCOUS 2 % solutionTake 5-10 mL by mouth four times daily as needed.Disp: 100 mLRfl: 1 amoxicillin (AMOXIL) 875 mg tabletTake 1 tablet by mouth twice daily for 10 days.Disp: 20 tabletRfl: 0 Prescriptions as of 02/20/2022 - LIDOCAINE VISCOUS 2 % solution Take 5-10 mL by mouth four times daily as needed. - amoxicillin (AMOXIL) 875 mg tablet Take 1 tablet by mouth twice daily for 10 days. Problem List As Of Date: 02/20/2022 (None) Prescriptions ordered this encounter Disp Refills Start End LIDOCAINE HCL 2 % MUCOSAL SOLUTION 100 * 1 02/20/2022 02/20/2022 Route: ORAL Sig: Take 5-10 mL by mouth as needed. LIDOCAINE HCL 2 % MUCOSAL SOLUTION 100 * 1 02/20/2022 Route: ORAL Sig: Take 5-10 mL by mouth four times daily as needed. AMOXICILLIN 875 MG TABLET 20 t* 0 02/20/2022 03/02/2022 Cmt: If symptoms persist another week try antibiotic. Route: ORAL Sig: Take 1 tablet by mouth twice daily for 10 days. Medications Discontinued During This Encounter Prescriptions - LIDOCAINE VISCOUS 2 % solution (Discontinued) Take 5-10 mL by mouth as needed. Encounter Status:Closed by DELMY HAIRSTON on 02/20/22 Normal [facility] Vital Signs Date Time Vital Sign Value Performing Clinician Yamileth osorio 12-01-2024 09:39-0400 Body height 170.18 cm Ashley VELASQUEZ Work Phone: [facility] 12-01-2024 09:39-0400 Body mass index (BMI) [Ratio] 32 kg/m2 Ashley Alexander [employer] Work Phone: [facility] 12-01-2024 09:39-0400 Body temperature 97.2 [degF] Ashley Alexander [employer] Work Phone: [facility] 12-01-2024 09:39-0400 Body weight 92.64 kg Ashley Alexander [employer] Work Phone: [facility] 12-01-2024 09:39-0400 Diastolic blood pressure 104 mm[Hg] Ashley Alexander [employer] Work Phone: [facility] 12-01-2024 09:39-0400 Heart rate 75 /min Ashley Alexander [employer] Work Phone: [facility] 12-01-2024 09:39-0400 Respiratory rate 18 /min Ashley Alexander [employer] Work Phone: [facility] 12-01-2024 09:39-0400 SaO2% (BldA) [Mass fraction] 98 % Ashleycameron Alexander [employer] Work Phone: [facility] 12-01-2024 09:39-0400 Systolic blood pressure 144 mm[Hg] Ashleycameron Alexander [employer] Work Phone: [facility] Encounters Encounter Date Encounter Type Care Provider Facility Start: 12-09-2024 ambulatory Ashley Alexander Facility:[facility] Start: 12-01-2024 End: 12-01-[address] Silvestre Concepcion MD -[facility] Work Phone: Start: 12-01-2024 End: 12-01-2024 ambulatory Ashley Alexander [employer] Work Phone: [facility] Work Phone: Start: 11-27-2024 Encounter for genera l adult medical examination with abnormal findings Ashley Alexander [facility] Start: 11-20-2024 End: 11-20-2024 ambulatory Ashley Alexander [employer] Work Phone: [facility] Work Phone: Start: 11-20-2024 End: 11-20-2024 Patient encounter procedure Ashley Alexander [facility] -[facility] Work Phone: Start: 11-20-2024 End: 11-20-2024 ambulatory Ashley Aleaxnder Facility:[facility] Start: 07-21-2024 End: 07-21-2024 ambulatory TANESHA PARK Facility:[facility] Start: 07-21-2024 End: 07-21-2024 Patient encounter procedure TANESHA PARK [facility] Start: 03-05-2024 End: 03-05-2024 ambulatory Silvestre PARK Facility:[facility] Date Procedure Procedure Detail Performing Clinician Start: 11-20-2024 Prostate specific an tigen measurement Ashley Alexander [employer] Work Phone: Comment on above: This test was perfor med using the [employer] tPSA method. Measured values of a patient sample can vary depending on the testing procedure used. PSA values determined on patient samples by different testing procedures cannot be used interchangeably. If there is a change in PSA assays while monitoring therapy, sequential testing should be performed to confirm baseline values. Payers Date Payer Category Payer Unknown [id number] 2024 Unknown [id number] 2024 Self-pay 1970 Unknown [id number] [id number] [id number] Unknown [id number] [id number] [id number] Unknown [id number] 2.16.8 [id number] Unknown [id number] 2.16.8 [id number] Unknown [id number] 2.16.8 [id number] Social History Date Type Detail Facility Tobacco smoking status [facility] Start: 1970 Sex Assigned At Male [facility] Start: 07-21-2024 Sex Male (finding) [facility] Work Phone: Start: 12-01-2024 Tobacco smoking stat us NHIS Never smoked tobacco (finding) [facility] Progress note 02-20-2022 Note Date & Type Note Facility 02-20-2022 Note HNO ID: [id number] Author: Delmy Hairston APRN.[employer] Service: ? Author Type: Nurse Practitioner Type: Progress Notes Filed: 02/20/2022 11:03 AM Note Text: Subjective HPI HPI Gerry Low is a 52 year old male who presents today for CC of st. This started 2 weeks ago, also had nasal congestion in beginning/now gone. Has tried otc medication for relief. Symptoms are worsened by nothing. Risk factors significant other with uri symptoms currently. Denies fever, rash, cp/sob, n/v/d, ear pain. .Patient presents with: Sore Throat: X 2 weeks No past medical history on file. No past surgical history on file. ALLERGIES Patient has no allergy information on record. MEDICATIONS LIDOCAINE VISCOUS 2 % solution Take 5-10 mL by mouth four times daily as needed. No family history on file. Social History Tobacco Use Smoking status: Never Passive exposure: Never Smokeless tobacco: Never ROS Objective Blood pressure 154/104, pulse 78, temperature 36.4 ?C (97.5 ?F), resp. rate 21, weight 95.3 kg (210 lb), SpO2 98 %. Physical Exam Constitutional: General: He is not in acute distress. Appearance: He is not toxic-appearing or diaphoretic. HENT: Head: Normocephalic and atraumatic. Right Ear: Hearing, tympanic membrane, ear canal and external ear normal. There is no impacted cerumen. Left Ear: Hearing, tympanic membrane, ear canal and external ear normal. There is impacted cerumen (small amount of left tm visible/normal.). Nose: Nose normal. Mouth/Throat: Pharynx: Uvula midline. No pharyngeal swelling, oropharyngeal exudate, posterior oropharyngeal erythema or uvula swelling. Eyes: General: Lids are normal. No scleral icterus. Right eye: No discharge. Left eye: No discharge. Conjunctiva/sclera: Conjunctivae normal. Pupils: Pupils are equal, round, and reactive to light. Neck: Trachea: Trachea normal. Cardiovascular: Rate and Rhythm: Normal rate and regular rhythm. Heart sounds: Normal heart sounds. Pulmonary: Effort: Pulmonary effort is normal. Breath sounds: Normal breath sounds. Musculoskeletal: Cervical back: Normal range of motion and neck supple. Lymphadenopathy: Cervical: No cervical adenopathy. Right cervical: No superficial cervical adenopathy. Left cervical: No superficial cervical adenopathy. Skin: Findings: No rash. Neurological: Mental Status: He is alert and oriented to person, place, and time. ASSESSMENT/PLAN: 1. Sore throat - ICD9: 462, ICD10: J02.9 - suspect viral - Alere Strep Test neg, no culture pending - Discussed supportive care treatment with fluids, rest and analgesia. - The patient should follow up in 3-5 days if symptoms persist or worsen If symptoms persist another week, try atb for protracted uri. - ALERE STREP A TEST (AG) - LIDOCAINE HCL 2 % MUCOSAL SOLUTION - AMOXICILLIN 875 MG TABLET Agrees to plan Delmy Hairston APRN.[facility] Evaluation + Plan note Note Date & Type Note Facility Evaluation + Plan note No data available for this section [facility] Evaluation note Note Date & Type Note Facility Evaluation note No assessment information availa [facility] Work Phone: Hospital Discharge instructions Note Date & Type Note Facility Hospital Discharge instructions No data available for this section [facility] Progress note Note Date & Type Note Facility Progress note No data available for this section [facility] Reason for referral (narrative) Note Date & Type Note Facility Reason for referral (narrative) No reason for referral information available [facility] Work Phone: Summary Purpose Family History No Family History Records Found No data available for this section No Family History Records FoundNo Family History Records Found Advance Directives No Advanced Directives Records FoundNo Advanced Directives Records FoundNo Advanced Directives Records Found Chief Complaint and Reason for Visit Chief Complaint Admit Date COLONOSCOPY, BLOODY STOOL December 01, 2024 9:23am Additional Source Comments (unrecognized sect ion and content) No Status Records FoundNo Status Records FoundNo Status Records Found INFORMATION SOURCE (unrecogn ized section and content) DATE CREATED AUTHOR 02/24/2022 [facility] DATE CREATED AUTHOR AUTHOR'S ORGANIZ ATION 07/23/2024 [facility] DATE CREATED AUTHOR AUTHOR'S ORGANIZ ATION 12/09/2024 [facility] Care Teams (unrecognized sec tion and content) Team Status: Active Member Role Status Dates EVA Espino Primary Care Provider Active Team Status: Inactive Member Role Status Dates EVA Espino Primary Care Provider Active Start: November 20, 2024 End: November 20, 2024 EVA Espino Attending Provider Active St art: November 20, 2024 End: November 20, 2024 EVA Espino Referring Provider Active St art: November 20, 2024 End: November 20, 2024 Goals (unrecognized section and content) Goals may be documented in a n alternate section FOR RECORDS PERTAINING TO PATIENTS WHO ARE OR HAVE BEEN ENROLLED IN A CHEMICAL DEPENDENCY/SUBSTANCEABUSE PROGRAM, SOME INFORMATION MAY BE OMITTED. This clinical summary was aggregated from multiple sources. Caution should be exercised in using it in the provision of clinical care. This summary normalizes information from multiple sources, and as a consequence, information in this document may materially change the coding, format and clinical context of patient data. In addition, data may be omitted in some cases. CLINICAL DECISIONS SHOULD BE BASED ON THE PRIMARY CLINICAL RECORDS. [employer] provides no warranty or guarantee of the accuracy or completeness of information in this document.
--- NOTE | 2024-12-09 06:44 | PCM.PRE.AN2 ---
ASA Classification* ASA Classification ASA Classification: 2 Assessment & Plan Anesthesia* Anesthesia Assessment Anesthesia Assessment: Discussed sedation and/or anesthesia options, risks, benefits, and alternatives with patient/parents/legal guardian/POA. Questions invited. The patient/parents/legal guardian/POA seems to understand and agrees to proceed with anesthesia plan. Reviewed the physical assessment, medical history, allergy history and patient home medications list prior to surgery/procedure/anesthetic and documented any changes. Performed airway and anesthesia risk assessments. Anesthesia Type Anesthesia Type: MAC Anesthesia Focused Assessment* Airway Assessment Mouth opens: >3 cm Mallampati Score: II Labs Anesthesia Preop lab: CBC WBC 8.4 K/mm3 (4.4-11.0) 11/20/24 14:34 11/20/24 RBC 4.86 M/mm3 (4.6-6.2) 11/20/24 14:34 11/20/24 Hgb 15.2 g/dL (13.0-16.5) 11/20/24 14:34 11/20/24 Hct 43.7 % (40-54) 11/20/24 14:34 11/20/24 Plt Count 368 K/mm3 (150-450) 11/20/24 14:34 11/20/24 CHEMISTRY Potassium 3.8 mmol/L (3.3-5.1) 11/20/24 14:34 11/20/24 Sodium 137 mmol/L (133-145) 11/20/24 14:34 11/20/24 BUN 12 mg/dL (4-19) 11/20/24 14:34 11/20/24 Creatinine 0.94 mg/dL (0.70-1.20) 11/20/24 14:34 11/20/24 Glucose 94 mg/dL (70-99) 11/20/24 14:34 11/20/24 COAG Pre-Assessment Diagnosis/Proposed Procedure Planned Operative Procedure(s): COLONOSCOPY Anesthesia History 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 When Was Last Pacemaker Check QUESTION #4 FULL TEXT: You/Your Family Experience fever (hyperthermia) with Anesthesia Last Oral Intake Last Oral intake: Last Oral Intake NPO since Meds taken in AM with sips of water? Meds patient instructed to take am of surgery PONV PONV - export traffic department manager: PONV - export traffic department manager Female No 12/05/24 13:25 HX of Motion Sickness No 12/05/24 13:25 HX of N/V After Surgery No 12/05/24 13:25 Non-Smoker No 12/05/24 13:25 Duration of Surgery greater No 12/05/24 13:25 than 60 minutes Number of Risk Factors PONV Score Height & Weight Height & Weight: Anesthesia: Height & Weight Height 5 ft 7 in 12/01/24 09:39 Respiratory Assessment Respiratory Assessment - export traffic department manager: Respiratory Tract Infection Hx - export traffic department manager Hx Respiratory Tract Infection No 12/05/24 13:25 STOP Sleep Apnea STOP Sleep Apnea - export traffic department manager: STOP Sleep Apnea - export traffic department manager Hx Hypertension No 12/05/24 13:25 Hx Sleep Apnea No 12/05/24 13:25 CPAP BIPAP Do you snore loudly (louder Yes 12/05/24 13:25 than talking or can be heard Do you often feel tired/ No 12/05/24 13:25 fatigued/ sleepy during daytime? Has anyone observed you stop No 12/05/24 13:25 breathing during sleep? STOP Results Negative 12/05/24 13:25 QUESTION #5 FULL TEXT : Do you snore loudly (louder than talking or can be heard through closed doors)? 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 Specify any problems Hx of Preganancy in last 3 N/A 12/05/24 13:25 Months Nurse Filling Out Transfusion GILBERTOLLSHAI 12/05/24 13:25 & Questions: Date: 12/05/24 12/05/24 13:25 Time: 13:27 12/05/24 13:25 Patient unable to answer at this time (ie. confused, unrespo /Reproduction History /Reproductive History - export traffic department manager: /Reproductive Hx- export traffic department manager Hx Now No 12/05/24 13:25 Gestational Age (in weeks): EDC: Hx Hx Para Hx Section SAB No 12/05/24 13:25 Active Medications Active Medications: Current Medications Generic Name Dose Route Start Last Admin Trade Name Freq PRN Reason Stop Dose Admin Lactated Ringer's 1,000 mls @ 15 mls/hr 12/09/24 06:45 IV .Q48H JOSE ANGEL PFSH Medical History Wears glasses Wears partial dentures Cancer Non-smoker Hemorrhoids Blood in stool Home Medications ?Medication ?Instructions ?Recorded ?Last Taken ?Type NK 12/01/24 Unknown History Allergy/AdvReac Type Severity Reaction Status Date / Time No Known Allergies Allergy Verified 12/05/24 13:19 Surgical History Hx of total knee arthroplasty Social History Smoking Status: Never smoker alcohol intake: never substance use type: does not use Review of Systems (Anesthesia) ROS Narrative System reviewed and no additional complaints, except as documented.
[2024-12-09 06:56] VITALS: BP 128/87; PULSE 79; RESP 16; TEMP 36.7; O2SAT 97; BMI 28.7
[2024-12-09] MEDS: Lactated Ringers 1,000 ML 15 ML IV (07:05)
--- NOTE | 2024-12-09 07:25 | PCM.HP.STD ---
HPI - General General Date of Admission: 12/09/24 Date of Service: 12/09/24 Chief Complaint: blood in stools HPI Narrative The patient is a 54-year-old male who is being seen today for complaints of blood per rectum. He has never had a colonoscopy. He states that for the past year he has noticed intermittent bright red blood with bowel movements. He states that this blood is usually just noticed on the toilet tissue with wiping however it can sometimes also be within the toilet bowl water as well. He does admit to being on his feet and lifting on a daily basis. He denies issues with constipation. No family history of colon polyps or colon cancers. He presents today to for colonoscopy [facility] Medical History Wears glasses Wears partial dentures Cancer Non-smoker Hemorrhoids Blood in stool Home Medications ?Medication ?Instructions ?Recorded ?Last Taken ?Type NK 12/01/24 Unknown History Allergy/AdvReac Type Severity Reaction Status Date / Time No Known Allergies Allergy Verified 12/09/24 06:54 Surgical History Hx of total knee arthroplasty Social History Smoking Status: Never smoker alcohol intake: never substance use type: does not use Vital Signs Vital Signs Vital Signs: 12/09/24 06:55 12/09/24 06:56 Temperature 98.0 F Temperature Source Temporal Pulse Rate 79 Respiratory Rate 16 Respiratory Pattern Normal Blood Pressure 128/87 H Blood Pressure Mean 100 Blood Pressure Source Monitor Blood Pressure Position Semi-Fowlers Blood Pressure Location Left Arm Pulse Ox 97 Oxygen Delivery Method Room Air Weight Weight: 194 lb 9.6 oz Body Mass Index (BMI) 28.7 Physical Exam Const alert, oriented x3 and no apparent distress Assessment & Plan Assessment/Plan (1) Blood in stool: PLAN: Plan colonoscopy today
[2024-12-09 08:00] VITALS: BP 119/80; BP 120/72; BP 128/87; PULSE 70; PULSE 72; RESP 16; RESP 20; TEMP 36.3; O2SAT 95; O2SAT 96
--- NOTE | 2024-12-09 08:00 | PCM.POST.ANE ---
Anesthesia: Postop Eval I Current Vital Signs Temperature: 97.4 F Pulse Rate: 70 Blood Pressure: 120/72 Respiratory Rate: 20 Pulse Ox: 95 Assessment Airway patent: Yes Spontaneous unlabored respirations: Yes nausea: No Vomiting: No Anesthesia Complication: No Fluid Hydration Crystalloid volume administer (ml): 400 Total IV fluid infused: 400 Progress Note Anesthesia document: Postop Eval 1 completed: Yes
--- NOTE | 2024-12-09 08:04 | OP.CCLET_ITS ---
12/09/2024 Kentrell Espino Re : Colonoscopy procedure for Gerry Elenar Benjamin This procedure was performed on Monday, December 09, 2024. My impressions and recommendations are as follows: Impressions : - Diverticulosis in the sigmoid colon. - Non-bleeding internal hemorrhoids. - The examination was otherwise normal on direct and retroflexion views. - No specimens collected. Recommendations : - Discharge patient to home (ambulatory). - High fiber diet. - Repeat colonoscopy in 10 years for screening purposes. - Return to my office PRN. - Continue present medications. My findings are described in the full procedure note, which is enclosed. If I can be of further assistance, please feel free to contact me at . Sincerely, Silvestre Concepcion MD 12/09/2024 8:03:52 AM This report has been signed electronically.
--- NOTE | 2024-12-09 08:04 | OP.COLON_ITS ---
Patient Name: Gerry Burnham Procedure Date: 12/09/2024 7:24 AM Date of : 1970 Age: 54 Procedure: Colonoscopy Indications: Screening for colorectal malignant neoplasm Providers: Silvestre Concepcion MD Referring MD: Silvestre Concepcion MD Medicines: Monitored Anesthesia Care Patient Profile: Refer to note in patient chart for documentation of history and physical. Last Colonoscopy: none. The patient's first colonoscopy is today. Complications: No immediate complications. Estimated blood loss: None. Procedure: Pre-Anesthesia Assessment: - Prior to the procedure, a History and Physical was performed, and patient medications and allergies were reviewed. The patient's tolerance of previous anesthesia was also reviewed. The risks and benefits of the procedure and the sedation options and risks were discussed with the patient. All questions were answered, and informed consent was obtained. Prior Anticoagulants: The patient has taken no anticoagulant or antiplatelet agents. ASA Grade Assessment: II - A patient with mild systemic disease. After reviewing the risks and benefits, the patient was deemed in satisfactory condition to undergo the procedure. After I obtained informed consent, the scope was passed under direct vision. Throughout the procedure, the patient's blood pressure, pulse, and oxygen saturations were monitored continuously. The adult colonoscope was introduced through the anus and advanced to the cecum, identified by appendiceal orifice and ileocecal valve. The ileocecal valve, appendiceal orifice, and rectum were photographed. The entire colon was well visualized. The colonoscopy was performed without difficulty. The patient tolerated the procedure well. The quality of the bowel preparation was adequate. Moderate Sedation: See the other procedure note for documentation of moderate sedation with intraservice time. Scope In: 7:37:28 AM Scope Withdrawal Time 0 hours 11 minutes 18 seconds Scope Out: 7:54:08 AM Total Procedure Duration Time 0 hours 16 minutes 40 seconds Findings: The perianal and digital rectal examinations were normal. A few small-mouthed diverticula were found in the sigmoid colon. Non-bleeding internal hemorrhoids were found during retroflexion. The hemorrhoids were moderate. The exam was otherwise without abnormality on direct and retroflexion views. Impression: - Diverticulosis in the sigmoid colon. - Non-bleeding internal hemorrhoids. - The examination was otherwise normal on direct and retroflexion views. - No specimens collected. Recommendation: - Discharge patient to home (ambulatory). - High fiber diet. - Repeat colonoscopy in 10 years for screening purposes. - Return to my office PRN. - Continue present medications. Procedure Code(s): --- Professional --- 98294, Colonoscopy, flexible; diagnostic, including collection of specimen(s) by brushing or washing, when performed (separate procedure) CPT copyright 2021 [employer]. All rights reserved. The codes documented in this report are preliminary and upon magnetic prospector review may be revised to meet current compliance requirements. Silvestre Concepcion MD 12/09/2024 8:03:52 AM This report has been signed electronically. Number of Addenda: 0 Note Initiated On: 12/09/2024 7:24 AM
[2024-12-09 08:05] VITALS: BP 107/82; BP 128/87; PULSE 64; RESP 16; O2SAT 98
[2024-12-09 08:10] VITALS: BP 128/87; BP 136/89; PULSE 67; RESP 16; TEMP 36.7; O2SAT 100
[2024-12-09 08:32] VITALS: BP 128/87
--- NOTE | 2024-12-09 08:32 | POSTOPAN2_ITS ---
Anesthesia Postop Eval I Sum Postop Eval Completion status Anesthesia document: Postop Eval 1 completed: Yes Anesthesia Postop Eval I Summary Anesthesia Postop Eval I Summary: Anesthesia Postop Eval I: Assessment Summary Airway patent Yes 12/09/24 08:00 FIELD ARTILLERY OFFICER.CSIR Spontaneous unlabored Yes 12/09/24 08:00 FIELD ARTILLERY OFFICER.CSIR respirations Mental status nausea No 12/09/24 08:00 FIELD ARTILLERY OFFICER.CSIR Vomiting No 12/09/24 08:00 FIELD ARTILLERY OFFICER.CSIR Anesthesia Postop Eval I: Fluid Summary Crystalloid volume administer 400 12/09/24 08:00 FIELD ARTILLERY OFFICER.CSIR (ml) Colloids volume administered ( ml) Blood Product volume administered (ml) Total IV fluid infused 400 12/09/24 08:00 FIELD ARTILLERY OFFICER.CSIR Anesthesia Postop Eval I: Summary Notes Anesthesia Complication No 12/09/24 08:00 FIELD ARTILLERY OFFICER.CSIR Anesthesia Complication Comment: Post-operative progress note Anesthesia: Postop Eval II Evaluation Mental status: Awake Pain Level: 0 nausea: No Vomiting: No
--- NOTE | 2024-12-09 08:32 | PCM.POSTANE2 ---
Anesthesia Postop Eval I Sum Postop Eval Completion status Anesthesia document: Postop Eval 1 completed: Yes Anesthesia Postop Eval I Summary Anesthesia Postop Eval I Summary: Anesthesia Postop Eval I: Assessment Summary Airway patent Yes 12/09/24 08:00 SWITCHING CLERK.CSIR Spontaneous unlabored Yes 12/09/24 08:00 SWITCHING CLERK.CSIR respirations Mental status nausea No 12/09/24 08:00 SWITCHING CLERK.CSIR Vomiting No 12/09/24 08:00 SWITCHING CLERK.CSIR Anesthesia Postop Eval I: Fluid Summary Crystalloid volume administer 400 12/09/24 08:00 SWITCHING CLERK.CSIR (ml) Colloids volume administered ( ml) Blood Product volume administered (ml) Total IV fluid infused 400 12/09/24 08:00 SWITCHING CLERK.CSIR Anesthesia Postop Eval I: Summary Notes Anesthesia Complication No 12/09/24 08:00 SWITCHING CLERK.CSIR Anesthesia Complication Comment: Post-operative progress note Anesthesia: Postop Eval II Evaluation Mental status: Awake Pain Level: 0 nausea: No Vomiting: No
== END 2024-12-09 08:36 | disposition home or self-care (01) ==
LOC: EN 06:38 → AC 06:38
PROVIDERS: PCP Nurse Practitioner Family; Referring Provider Surgery; Visit Provider Surgery
PROC: 0DJD8ZZ Inspection of Lower Intestinal Tract, Via Natural or Artificial Opening Endoscopic (ICD-10-PCS; CPT 45378; principal; 2024-12-09 07:25)
DX: K64.8 Other hemorrhoids (principal); K92.1 Melena; K57.30 Diverticulosis of large intestine without perforation or abscess without bleeding
CPT/HCPCS: 45378; J2405